=== PATIENT | female | born 1960 | race Caucasian/White ===

== ENCOUNTER 2018-10-24 09:22 | Day surgery (SDC) | payer BC ==
[~2018-10-24] VITALS: Ht 167.6 cm; Wt 75.1 kg
[2018-10-24 09:55] VITALS: BP 144/86
== END 2018-10-24 13:40 | disposition home or self-care (01) ==
LOC: OUT 09:22
PROVIDERS: ATTEND Surgery
DX: C50.811 Malignant neoplasm of overlapping sites of right female breast (principal); Z79.899 Other long term (current) drug therapy; Z90.710 Acquired absence of both cervix and uterus; Z80.3 Family history of malignant neoplasm of breast
CPT/HCPCS: 36561; 71045; 77001; C1788; J0690; J1100; J1644; J2250; J2405; J2704; J3010; J7120; Q0162

== ENCOUNTER 2019-03-13 10:53 | Day surgery (SDC) | payer BC ==
[~2019-03-13] VITALS: Ht 167.6 cm; Wt 67.6 kg
[~2019-03-13 10:53] MED LIST: BUPIVACAINE/PF 0.5% ONE; CHOL100011 PO; DULO20CA45 PO; EPINEPHRINE 1 MG/ML, 1ML ONE; FOLI-17 PO; ISOSULFAN BLUE 10 MG/ML, 5ML IV ONE; LORA-445 PO; MELA5TAB14 PO; MULT-658 PO; TRAZ50TA66 PO; UBID100C41 PO; vitamin b-6 PO; vitamin b12 PO
[2019-03-13] MEDS ORDERED: LACTATED RINGERS 1,000 ML IV SCH ×3 (11:18→20:00)
[2019-03-13 11:24] VITALS: BP 147/81
[2019-03-13] MEDS ORDERED: ACETAMINOPHEN 500 MG TABLET ONE ×2 (13:28)
[2019-03-13] MEDS ORDERED: GABAPENTIN 300 MG CAPSULE ONE ×2 (13:28→13:29)
[2019-03-13] MEDS ORDERED: MIDAZOLAM 1 MG/ML, 2ML ONE (13:37)
[2019-03-13] MEDS ORDERED: FENTANYL PF 250 MCG/5ML ONE (13:37)
[2019-03-13] MEDS ORDERED: PROPOFOL 100 ML ONE ×2 (13:48→14:54)
[2019-03-13] MEDS ORDERED: BACITRACIN 50,000 UNIT ONE (14:02)
[2019-03-13] MEDS ORDERED: GENTAMICIN 80 MG/2 ML ONE (14:02)
[2019-03-13] MEDS ORDERED: CEFAZOLIN 1,000 MG ONE ×2 (14:02→16:26)
[2019-03-13] MEDS ORDERED: LABETALOL 5MG/ML, 20ML IV PRN (15:00)
[2019-03-13] MEDS ORDERED: OXYcodone 5 MG/5 ML ORAL.SOL UDC PO PRN (15:00)
[2019-03-13] MEDS ORDERED: MEPERIDINE/PF 25MG/0.5ML IVPush PRN (15:00)
[2019-03-13] MEDS ORDERED: ALBUTEROL SULFATE 2.5 MG/3 ML NPPB PRN (15:00)
[2019-03-13] MEDS ORDERED: hydrALAzine 20 MG/ML, 1ML IV PRN (15:00)
[2019-03-13] MEDS ORDERED: FENTANYL PF 100 MCG/2ML IV PRN (15:00)
[2019-03-13] MEDS ORDERED: DIAZEPAM 5 MG/ML, 2ML IVPush PRN (15:00)
[2019-03-13] MEDS ORDERED: PROMETHAZINE 25 MG/ML, 1ML IV PRN (15:00)
[2019-03-13] MEDS ORDERED: SUCCINYLCHOLINE 20 MG/ML, 10ML ONE (16:26)
[2019-03-13] MEDS ORDERED: ROCURONIUM 10MG/ML,5ML ONE (16:26)
[2019-03-13] MEDS ORDERED: ONDANSETRON 2MG/ML, 2ML ONE (16:26)
[2019-03-13] MEDS ORDERED: DEXAMETHASONE 4 MG/ML, 1ML ONE (16:26)
[2019-03-13] MEDS ORDERED: NEOSTIGMINE 1 MG/ML, 10ML ONE (16:26)
[2019-03-13] MEDS ORDERED: GLYCOPYRROLATE 0.2MG/1ML, 5ML ONE (16:26)
[2019-03-13] MEDS ORDERED: PROPOFOL 10 MG/ML, 20ML ONE (16:26)
[2019-03-13] MEDS ORDERED: SUGAMMADEX 200 MG/2 ML IVPush ONE (16:27)
[2019-03-13] MEDS ORDERED: OXYcodone 5 MG/5 ML ORAL.SOL UDC ONE (16:47)
[2019-03-13] MEDS ORDERED: FENTANYL PF 100 MCG/2ML ONE (16:47)
[2019-03-13] MEDS ORDERED: HYDROmorphone 1 MG/ML, 1ML INJ ONE (16:47)
[2019-03-13] MEDS: HYDROmorphone 2 MG/ML, 1ML IVPush PRN ×2 (17:00→17:06)
[2019-03-13] MEDS ORDERED: MORPHINE SULFATE 4 MG/ML, 1ML IVPush PRN (19:30)
[2019-03-13] MEDS ORDERED: ONDANSETRON 2MG/ML, 2ML IVPush PRN (19:30)
== END 2019-03-13 20:11 | disposition home or self-care (01) ==
LOC: SDC 10:53 → EDSTATUS 14:00 → 4NE 17:55 → SDC 20:11
PROVIDERS: ATTEND Surgery
DX: C50.811 Malignant neoplasm of overlapping sites of right female breast (principal); N60.32 Fibrosclerosis of left breast; F41.9 Anxiety disorder, unspecified; Z17.0 Estrogen receptor positive status [ER+]; Z79.899 Other long term (current) drug therapy; Z92.21 Personal history of antineoplastic chemotherapy; Z90.710 Acquired absence of both cervix and uterus; Z98.1 Arthrodesis status; Z98.890 Other specified postprocedural states; Z80.3 Family history of malignant neoplasm of breast; Z83.3 Family history of diabetes mellitus; Z82.49 Family history of ischemic heart disease and other diseases of the circulatory system
CPT/HCPCS: 15777; 19303; 19307; 19357; 38792; 88307; 88329; 88333; A9541; C1729; C1762; C1789; J0171; J0330; J0690; J1100; J1170; J1580; J2250; J2405; J2704; J3010; J7120; G0378; J2710

== ENCOUNTER 2019-07-18 15:51 | Emergency (ER) | payer BC ==
[~2019-07-18] VITALS: Ht 167.6 cm; Wt 71.2 kg
[~2019-07-18 15:51] MED LIST changes: -OMNIPAQUE 350 MG/ML, 100ML BOTTLE ONE
--- NOTE | 2019-07-18 16:26 | NUR ---
PRINTING WORKER SUPERVISOR: PT AMBULATORY WITH STEADY GAIT TO ROOM AT THIS TIME. PT GIVEN GOWN AND ASKED TO CHANGE.
--- NOTE | 2019-07-18 16:50 | NUR ---
PT HAD CT FOR BREAST CANCER, RAD CALLED ONC AND STATED SHE HAD INFECTION IN LUNGS, ONCE REFERRED PT TO HED FOR LUNG INFECTION IN THE PAST AND WAS TOLD TO COME TO ED FOR CHECK UP. 4TH CYCLE CHEMO ON 05/27/2019, 5TH CYCLE TODAY, HAD "ACHE" IN THROAT AND PAIN IN JAW AND EARS, CT TODAY SHOWED BILAT OPACITIES. PT NOT IN RESP DISTRESS, RESP EVEN AND UNLABORED.
[2019-07-18 17:05] LABS: BASOPHILS # (AUTO) 0.03 x10^3/uL (0-0.1); BASOPHILS % (AUTO) 1 % (0-1); EOSINOPHILS % (AUTO) 2 % (1-7); LYMPHOCYTES # (AUTO) 1.32 x10^3/uL (1-3.4); LYMPHOCYTES % (AUTO) 21 % (22-44); MD NO; MEAN CORPUSCULAR HEMOGLOBIN 31.7 pg (27.0-34.8); MEAN CORPUSCULAR HGB CONC 34.1 g/dL (32.4-35.8); MEAN PLATELET VOLUME 7.8 fL (7.4-10.4); MONOCYTES # (AUTO) 0.47 x10^3/uL (0.2-0.8); MONOCYTES % (AUTO) 8 % (2-9); NEUTROPHILS # (AUTO) 4.26 x10^3/uL (1.8-6.8); NEUTROPHILS % (AUTO) 69 % (42-75); PLATELET COUNT 229 x10^3/uL (130-400); RED BLOOD COUNT 3.93 x10^6/uL (3.82-5.3); RED CELL DISTRIBUTION WIDTH 15.4 % (9.6-15.2)
[2019-07-18 17:13] LABS: ALANINE AMINOTRANSFERASE 26 U/L (12-78); ANION GAP 8 mmol/L (5-15); CALCIUM 9.1 mg/dL (8.5-10.1); CHLORIDE 100 mmol/L (98-107); CREATININE 0.79 mg/dL (0.55-1.02)
[2019-07-18 17:16] LABS: ALKALINE PHOSPHATASE 82 U/L (45-117); BILIRUBIN,TOTAL 0.3 mg/dL (0.2-1.0); TOTAL PROTEIN 7.4 g/dL (6.4-8.2)
--- NOTE | 2019-07-18 18:26 | NUR ---
COMMERCIAL APPRAISER: Patient/Caregiver given discharge instructions and they have confirmed that they understand the instructions. Patient ambulatory with steady gait. PT LEFT WITH ALL PERSONAL BELONGINGS. PT STATES "I'LL GET MY RX FILLED TOMORROW. WE ARE DRIVING TO [facility] NOW. I LIVE THERE." HEATHERN.
[2019-07-18 18:28] VITALS: BP 145/81
== END 2019-07-18 18:29 | disposition home or self-care (01) ==
LOC: ED 18:16
DX: J15.9 Unspecified bacterial pneumonia (principal); Z20.828 Contact with and (suspected) exposure to other viral communicable diseases; R91.8 Other nonspecific abnormal finding of lung field
CPT/HCPCS: 36415; 80053; 83605; 84145; 85025; 87040; 99283; U0001

== ENCOUNTER → 2019-07-18 | Outpatient (CLI) | payer BC ==
[~2019-07-18] MED LIST changes: -BUPIVACAINE/PF 0.5% ONE; -EPINEPHRINE 1 MG/ML, 1ML ONE; -ISOSULFAN BLUE 10 MG/ML, 5ML IV ONE; +OMNIPAQUE 350 MG/ML, 100ML BOTTLE ONE
== END | disposition home or self-care (01) ==
LOC: RAD 12:04
PROVIDERS: ATTEND Specialist
DX: C50.311 Malignant neoplasm of lower-inner quadrant of right female breast (principal); R91.1 Solitary pulmonary nodule; K76.89 Other specified diseases of liver; M41.86 Other forms of scoliosis, lumbar region
CPT/HCPCS: 71260; 74177; 78306; A9503; Q9967